=== PATIENT | male | born 1990 | race Caucasian/White ===

== ENCOUNTER 2019-06-06 02:45 | Inpatient (IN) | payer MEDICAID, OTHER ==
[~2019-06-06] VITALS: Ht 170.2 cm; Wt 63.6 kg
[2019-06-06] MEDS ORDERED: 0.9% SODIUM CHLORIDE 10 ML SYRINGE IVP PRN ×2 (03:30→10:15)
[2019-06-06] MEDS ORDERED: SODIUM CHLORIDE 0.9% 2,250 ML IV ONE (03:30)
[2019-06-06 03:43] LABS: GLUCOSE,POINT OF CARE 128 MG/DL (70-110)
[2019-06-06 04:08] LABS: INFLUENZA TYPE A NEGATIVE FOR TYPE A (NEGATIVE); INFLUENZA TYPE B NEGATIVE FOR TYPE B (NEGATIVE)
[2019-06-06 04:39] LABS: BASOPHILS % (AUTO) 0.2 % (0.0-2.0); EOSINOPHILS % (AUTO) 0.1 % (1.0-6.0); HEMATOCRIT 39.3 % (41-53); HEMOGLOBIN 14.2 g/dL (13.5-17.5); LYMPHOCYTES # (AUTO) 0.3 K/uL (1.0-4.8); LYMPHOCYTES % (AUTO) 2.6 % (22.0-44.0); MEAN CORPUSCULAR HEMOGLOBIN 35.6 pg (26.0-34.0); MEAN CORPUSCULAR HGB CONC 36.2 G/dL (31.0-37.0); MEAN CORPUSCULAR VOLUME 98 fL (80-100); MONOCYTES # (AUTO) 0.9 K/uL (0.1-1.0); MONOCYTES % (AUTO) 7.6 % (2.0-9.0); NEUTROPHILS # (AUTO) 10.7 K/uL (1.8-7.7); PLATELET COUNT (AUTO) 103 K/uL (150-450); RED CELL DISTRIBUTION WIDTH 12.7 % (11.5-14.5)
[2019-06-06 04:44] LABS: NEUTROPHILS % (AUTO) 89.5 % (40.0-70.0)
[2019-06-06] MEDS ORDERED: VANCOMYCIN HCL 1.5 GM in DEXTROSE 5%-WATER 250 ML IV ONE (04:45)
[2019-06-06 04:48] LABS: PROTHROMBIN TIME 10.2 SEC (9.4-11.6)
[2019-06-06 04:54] LABS: ALBUMIN 2.9 g/dL (3.4-5.0); BILIRUBIN,TOTAL 0.8 mg/dL (0.1-1.0); CALCIUM, TOTAL 8.7 mg/dL (8.8-10.5); CREATININE 1.54 mg/dL (0.60-1.30); TOTAL PROTEIN, SERUM 7.5 g/dL (6.4-8.2)
[2019-06-06 04:56] LABS: LACTIC ACID 1.5 mmol/L (0.4-2.0)
[2019-06-06 04:59] LABS: POTASSIUM 2.5 mmol/L (3.5-5.1)
[2019-06-06 05:01] LABS: FREE T4 (FREE THYROXINE) 0.82 ng/dL (0.76-1.46); THYROID STIMULATING HORMONE 1.51 uIU/mL (0.36-3.74)
[2019-06-06] MEDS: POTASSIUM CHL 10 MEQ/WATER 50 ML IV PRN ×4 (06:05→08:56)
[2019-06-06] MEDS ORDERED: SODIUM CHLORIDE 0.9% 250 ML IV ONE (06:45)
[2019-06-06 07:30] LABS: APPEARANCE,URINE CLOUDY (CLEAR); BILIRUBIN,URINE NEGATIVE (NEGATIVE); GLUCOSE, URINE (UA) NEGATIVE (NEGATIVE); KETONES,URINE 15 mg/dL (NEGATIVE); LEUKOCYTE ESTERASE ,URINE NEGATIVE (NEGATIVE); NITRATE,URINE NEGATIVE (NEGATIVE); OCCULT BLOOD,URINE LARGE (NEGATIVE); PH,URINE 5.5 (5.0-8.0); PROTEIN,URINE SEE CONFIRM (NEGATIVE); UROBILINOGEN,URINE 0.2 mg/dL (<=1.0)
[2019-06-06 07:36] LABS: AMPHET/METH SCREEN,URINE NEGATIVE (NEGATIVE); BARBITURATE SCREEN, URINE NEGATIVE (NEGATIVE); BENZODIAZEPINES SCREEN,URINE NEGATIVE (NEGATIVE); CANNABINOID SCREEN,URINE POSITIVE (NEGATIVE); COCAINE SCREEN,URINE NEGATIVE (NEGATIVE); METHADONE SCREEN, URINE NEGATIVE (NEGATIVE); OPIATE SCREEN,URINE NEGATIVE (NEGATIVE)
[2019-06-06 07:39] LABS: PHENCYCLIDINE SCREEN,URINE NEGATIVE (NEGATIVE)
[2019-06-06 07:45] LABS: SULFOSALICYLIC ACID,URINE 2+ (Negative)
[2019-06-06] MEDS ORDERED: ACETAMINOPHEN 500 MG TABLET PO ONE (07:45)
[2019-06-06 07:47] LABS: BACTERIA,URINE None Seen /HPF (None Seen); RBC,URINE 0-2 /HPF (0-2); SQUAMOUS EPITHELIAL CELL,UR Few /LPF (None Seen); WBC,URINE 0-2 /HPF (0-5)
[2019-06-06] MEDS: PIPERACILLIN/TAZO 3.375 GM/D5W 50 ML IV SCH ×3 (07:47→18:29)
[2019-06-06] MEDS: POTASSIUM CHLORIDE 20 MEQ ER TABLET PO PRN ×2 (10:01→15:02)
[2019-06-06] MEDS ORDERED: ONDANSETRON HCL 4 MG/2 ML VIAL IVP PRN (10:15)
[2019-06-06] MEDS ORDERED: POTASSIUM CHLORIDE 10% 40 MEQ/30 ML LIQUID UDCUP PO ONE ×3 (10:15→10:55)
[2019-06-06] MEDS ORDERED: OXYGEN THERAPY IH SCH (10:15)
[2019-06-06] MEDS ORDERED: ACETAMINOPHEN 325 MG TABLET PO PRN (10:15)
[2019-06-06] MEDS: ALBUTEROL SULFATE 2.5 MG/0.5 ML NEB SOLUTION NEB SCH ×4 (11:14→23:13)
[2019-06-06] MEDS: IPRATROPIUM BROMIDE 0.5 MG/2.5 ML NEB SOLUTION NEB SCH ×4 (11:14→23:13)
[2019-06-06] MEDS ORDERED: VANCOMYCIN HCL 1 GM/D5% WATER 200 ML IV SCH (19:00)
[2019-06-06] MEDS ORDERED: ALPRAZolam 0.25 MG TABLET PO ONE (20:15)
[2019-06-07] MEDS: PIPERACILLIN/TAZO 3.375 GM/D5W 50 ML IV SCH ×4 (00:27→21:46)
[2019-06-07] MEDS ORDERED: ACETAMINOPHEN 325 MG TABLET PO ONE (01:15)
[2019-06-07] MEDS ORDERED: HALOPERIDOL LACTATE 5 MG/ML VIAL IVP ONE (01:15)
[2019-06-07] MEDS ORDERED: SODIUM CHLORIDE 0.9% 1,000 ML IV ONE (01:15)
[2019-06-07] MEDS ORDERED: ACETAMINOPHEN 325 MG TABLET PO PRN (01:30)
[2019-06-07] MEDS ORDERED: ALBUTEROL SULFATE 2.5 MG/0.5 ML NEB SOLUTION NEB PRN (01:30)
[2019-06-07] MEDS ORDERED: BISACODYL 10 MG RECTAL RECTAL SUPPOSITORY PR PRN (01:30)
[2019-06-07] MEDS ORDERED: IPRATROPIUM BROMIDE 0.5 MG/2.5 ML NEB SOLUTION NEB PRN (01:30)
[2019-06-07] MEDS ORDERED: ONDANSETRON HCL 4 MG/2 ML VIAL IVP PRN (01:30)
[2019-06-07] MEDS ORDERED: MAGNESIUM HYDROXIDE SUSPENSION 30 ML UDCUP PO PRN (01:30)
[2019-06-07] MEDS ORDERED: ZOLPIDEM TARTRATE 5 MG TABLET PO PRN (01:30)
[2019-06-07] MEDS ORDERED: HYDROCODONE/ACETAMINOPHEN 5-325 MG TABLET PO PRN (01:30)
[2019-06-07 08:00] VITALS: BP 144/91
[2019-06-07] MEDS: SODIUM CHLORIDE 0.9% 1,000 ML IV SCH ×2 (08:22→16:10)
[2019-06-07 08:55] LABS: ANION GAP 12 mmol/L (8-16); CALCIUM, TOTAL 8.3 mg/dL (8.8-10.5); CARBON DIOXIDE 19 mmol/L (22-29); CHLORIDE 97 mmol/L (98-107); GLOMERULAR FILTR. RATE CALC > 60 mL/min (>60); GLUCOSE,RANDOM 98 mg/dL (70-110); POTASSIUM 3.7 mmol/L (3.5-5.1); SODIUM SERUM 128 mmol/L (136-145); UREA NITROGEN, BLOOD 12 mg/dL (7-18); VANCOMYCIN,RANDOM 5.7 mcg/mL (25.0-50.0)
[2019-06-07] MEDS: DOCUSATE SODIUM 100 MG CAPSULE PO SCH ×2 (09:00→20:41)
[2019-06-07] MEDS: ACETAMINOPHEN 650 MG/20.3 ML SOLUTION UDCUP PO PRN ×3 (09:36→21:46)
[2019-06-07 11:10] LABS: AMPHET/METH SCREEN,URINE NEGATIVE (NEGATIVE); BARBITURATE SCREEN, URINE NEGATIVE (NEGATIVE); BENZODIAZEPINES SCREEN,URINE NEGATIVE (NEGATIVE); CANNABINOID SCREEN,URINE POSITIVE (NEGATIVE); COCAINE SCREEN,URINE NEGATIVE (NEGATIVE); METHADONE SCREEN, URINE NEGATIVE (NEGATIVE); OPIATE SCREEN,URINE NEGATIVE (NEGATIVE)
[2019-06-07 11:11] LABS: PHENCYCLIDINE SCREEN,URINE NEGATIVE (NEGATIVE)
[2019-06-07] MEDS ORDERED: LORazepam 2 MG/ML VIAL IVP ONE (14:30)
[2019-06-07] MEDS: MORPHINE SULFATE 2 MG/ML SYRINGE IVP PRN (15:26)
[2019-06-07 16:00] VITALS: BP 156/52
[2019-06-07 20:00] VITALS: BP 136/107
[2019-06-07] MEDS: LORazepam 2 MG/ML VIAL IVP PRN (21:13)
[2019-06-08] VITALS: BP 112/75
[2019-06-08] MEDS ORDERED: ACETAMINOPHEN 650 MG/20.3 ML SOLUTION UDCUP ONE (02:17)
[2019-06-08] MEDS: LORazepam 2 MG/ML VIAL IVP PRN ×4 (02:18→21:00)
[2019-06-08] MEDS: ACETAMINOPHEN 650 MG/20.3 ML SOLUTION UDCUP PO PRN ×4 (02:27→21:00)
[2019-06-08] MEDS: PIPERACILLIN/TAZO 3.375 GM/D5W 50 ML IV SCH ×2 (03:21→09:09)
[2019-06-08 04:00] VITALS: BP 117/70
[2019-06-08 05:35] LABS: ANION GAP 10 mmol/L (8-16); CALCIUM, TOTAL 8.4 mg/dL (8.8-10.5); CARBON DIOXIDE 19 mmol/L (22-29); CHLORIDE 103 mmol/L (98-107); CREATININE 1.12 mg/dL (0.60-1.30); GLOMERULAR FILTR. RATE CALC > 60 mL/min (>60); GLUCOSE,RANDOM 116 mg/dL (70-110); SODIUM SERUM 132 mmol/L (136-145); UREA NITROGEN, BLOOD 14 mg/dL (7-18)
[2019-06-08 05:48] LABS: POTASSIUM 2.5 mmol/L (3.5-5.1)
[2019-06-08] MEDS: POTASSIUM CHL 10 MEQ/WATER 50 ML IV PRN ×7 (05:53→23:02)
[2019-06-08 08:00] VITALS: BP 133/87
[2019-06-08] MEDS: DOCUSATE SODIUM 100 MG CAPSULE PO SCH (08:56)
[2019-06-08] MEDS ORDERED: LORazepam 2 MG/ML VIAL IVP ONE (10:45)
[2019-06-08 12:00] VITALS: BP 127/58
[2019-06-08] MEDS: SODIUM CHLORIDE 0.9% 1,000 ML IV SCH (12:24)
[2019-06-08 13:45] LABS: BASOPHILS % (AUTO) 0.2 % (0.0-2.0); EOSINOPHILS % (AUTO) 0 % (1.0-6.0); HEMATOCRIT 37.3 % (41-53); HEMOGLOBIN 13.1 g/dL (13.5-17.5); LYMPHOCYTES # (AUTO) 0.8 K/uL (1.0-4.8); LYMPHOCYTES % (AUTO) 5.3 % (22.0-44.0); MEAN CORPUSCULAR HEMOGLOBIN 35.5 pg (26.0-34.0); MEAN CORPUSCULAR HGB CONC 35.2 G/dL (31.0-37.0); MEAN CORPUSCULAR VOLUME 101 fL (80-100); MONOCYTES # (AUTO) 0.6 K/uL (0.1-1.0); MONOCYTES % (AUTO) 3.7 % (2.0-9.0); NEUTROPHILS # (AUTO) 14.1 K/uL (1.8-7.7); NEUTROPHILS % (AUTO) 90.8 % (40.0-70.0); PLATELET COUNT (AUTO) 112 K/uL (150-450); RED CELL DISTRIBUTION WIDTH 13.3 % (11.5-14.5)
[2019-06-08 13:57] LABS: ANION GAP 9 mmol/L (8-16); CALCIUM, TOTAL 8.4 mg/dL (8.8-10.5); CARBON DIOXIDE 21 mmol/L (22-29); CHLORIDE 104 mmol/L (98-107); CREATININE 1.02 mg/dL (0.60-1.30); GLOMERULAR FILTR. RATE CALC > 60 mL/min (>60); GLUCOSE,RANDOM 99 mg/dL (70-110); POTASSIUM 3.3 mmol/L (3.5-5.1); SODIUM SERUM 134 mmol/L (136-145); UREA NITROGEN, BLOOD 15 mg/dL (7-18)
[2019-06-08 14:03] LABS: ALANINE AMINOTRANSFERASE 110 U/L (12-78); ALBUMIN 2.2 g/dL (3.4-5.0); ALKALINE PHOSPHATASE 58 U/L (46-116); ASPARTATE AMINOTRANSFERASE 425 U/L (15-37); BILIRUBIN,TOTAL 1.1 mg/dL (0.1-1.0); TOTAL PROTEIN, SERUM 6.4 g/dL (6.4-8.2)
[2019-06-08] MEDS: CefTRIAXone SODIUM 2 GM in DEXTROSE 5%-WATER 50 ML IV SCH (14:33)
[2019-06-08] MEDS: POTASSIUM CHL 10 MEQ/WATER 50 ML IV SCH ×4 (14:39→16:53)
[2019-06-08] MEDS ORDERED: OSELTAMIVIR PHOSPHATE 75 MG CAPSULE PO SCH (14:45)
[2019-06-08] MEDS ORDERED: VANCOMYCIN HCL 1 GM/D5% WATER 200 ML IV ONE (15:00)
[2019-06-08] MEDS ORDERED: SODIUM CHLORIDE 0.9% 250 ML IV ONE (15:01)
[2019-06-08] MEDS: MORPHINE SULFATE 2 MG/ML SYRINGE IVP PRN (15:06)
[2019-06-08] MEDS: MetroNIDAZOLE 500 MG/NACL 100 ML IV SCH ×2 (15:22→23:02)
[2019-06-08] MEDS: ACYCLOVIR 700 MG in DEXTROSE 5%-WATER 100 ML IV SCH ×2 (15:22→23:02)
[2019-06-08 16:00] VITALS: BP 123/88
[2019-06-08] MEDS: AZITHROMYCIN 500 MG/NS 250 ML IV SCH (16:55)
[2019-06-08 19:22] LABS: C.DIFF GDH ANTIGEN, Stool Negative (Negative); C.DIFF TOXINS A&B, Stool Negative (Negative)
[2019-06-08] MEDS: DOCUSATE SODIUM 100 MG/10 ML LIQUID UDCUP PO SCH (19:49)
[2019-06-08 20:00] VITALS: BP 142/94
[2019-06-08] MEDS: OSELTAMIVIR PHOSPHATE 6 MG/ML 5 ML SUSPENSION ORAL.SYG PO SCH (21:00)
[2019-06-08] MEDS: VANCOMYCIN HCL 1 GM/D5% WATER 200 ML IV SCH (21:01)
[2019-06-09] VITALS: BP 135/89
[2019-06-09] MEDS: CefTRIAXone SODIUM 2 GM in DEXTROSE 5%-WATER 50 ML IV SCH ×2 (02:18→15:42)
[2019-06-09] MEDS: ACETAMINOPHEN 650 MG/20.3 ML SOLUTION UDCUP PO PRN ×4 (02:32→21:16)
[2019-06-09 04:00] VITALS: BP 157/88
[2019-06-09] MEDS: VANCOMYCIN HCL 1 GM/D5% WATER 200 ML IV SCH ×3 (05:01→21:16)
[2019-06-09 05:08] LABS: BASOPHILS % (AUTO) 0.1 % (0.0-2.0); EOSINOPHILS % (AUTO) 0 % (1.0-6.0); HEMATOCRIT 34.1 % (41-53); HEMOGLOBIN 12.2 g/dL (13.5-17.5); LYMPHOCYTES # (AUTO) 0.6 K/uL (1.0-4.8); LYMPHOCYTES % (AUTO) 3.8 % (22.0-44.0); MEAN CORPUSCULAR HEMOGLOBIN 35.7 pg (26.0-34.0); MEAN CORPUSCULAR HGB CONC 35.8 G/dL (31.0-37.0); MEAN CORPUSCULAR VOLUME 100 fL (80-100); MONOCYTES # (AUTO) 0.7 K/uL (0.1-1.0); MONOCYTES % (AUTO) 4.5 % (2.0-9.0); NEUTROPHILS # (AUTO) 13.5 K/uL (1.8-7.7); PLATELET COUNT (AUTO) 130 K/uL (150-450); RED BLOOD CELL COUNT(AUTO) 3.42 MIL/uL (4.50-5.90); RED CELL DISTRIBUTION WIDTH 13.4 % (11.5-14.5)
[2019-06-09 05:09] LABS: NEUTROPHILS % (AUTO) 91.6 % (40.0-70.0)
[2019-06-09 05:40] LABS: ALANINE AMINOTRANSFERASE 100 U/L (12-78); ALBUMIN 2.1 g/dL (3.4-5.0); ALKALINE PHOSPHATASE 61 U/L (46-116); ANION GAP 11 mmol/L (8-16); ASPARTATE AMINOTRANSFERASE 371 U/L (15-37); CALCIUM, TOTAL 8.5 mg/dL (8.8-10.5); CARBON DIOXIDE 21 mmol/L (22-29); CHLORIDE 106 mmol/L (98-107); CREATININE 0.93 mg/dL (0.60-1.30); GLOMERULAR FILTR. RATE CALC > 60 mL/min (>60); GLUCOSE,RANDOM 135 mg/dL (70-110); POTASSIUM 3.4 mmol/L (3.5-5.1); SODIUM SERUM 138 mmol/L (136-145); TOTAL PROTEIN, SERUM 6.1 g/dL (6.4-8.2); UREA NITROGEN, BLOOD 12 mg/dL (7-18)
[2019-06-09] MEDS: ACYCLOVIR 700 MG in DEXTROSE 5%-WATER 100 ML IV SCH ×2 (06:21→15:45)
[2019-06-09] MEDS: SODIUM CHLORIDE 0.9% 1,000 ML IV SCH ×2 (06:21→15:42)
[2019-06-09] MEDS: MetroNIDAZOLE 500 MG/NACL 100 ML IV SCH ×2 (06:21→17:20)
[2019-06-09] MEDS: POTASSIUM CHL 10 MEQ/WATER 50 ML IV PRN ×2 (06:21→07:39)
[2019-06-09 08:00] VITALS: BP 135/86
[2019-06-09] MEDS: LORazepam 2 MG/ML VIAL IVP PRN (08:16)
[2019-06-09] MEDS: OSELTAMIVIR PHOSPHATE 6 MG/ML 5 ML SUSPENSION ORAL.SYG PO SCH ×2 (08:22→21:15)
[2019-06-09] MEDS: DOCUSATE SODIUM 100 MG/10 ML LIQUID UDCUP PO SCH ×2 (08:22→20:03)
[2019-06-09] MEDS ORDERED: LORazepam 2 MG/ML VIAL IVP PRN (09:15)
[2019-06-09 12:00] VITALS: BP 164/85
[2019-06-09 13:17] LABS: POTASSIUM 3.5 mmol/L (3.5-5.1)
[2019-06-09 16:00] VITALS: BP 157/86
[2019-06-09 16:00] LABS: GLUCOSE, CSF 60 mg/dL (50-80); TOTAL PROTEIN, CSF 23 mg/dL (15-45)
[2019-06-09 16:39] LABS: APPEARANCE,CSF CLEAR (CLEAR); COLOR,CSF COLORLESS (COLORLESS); CSF TOTAL VOLUME 7.8 mL; CSF TUBE NUMBER 1
[2019-06-09 16:40] LABS: LYMPHOCYTES1,CSF 0 %; MONOCYTES1,CSF 0 %; NEUTROPHILS1,CSF 0 %; OTHER CELLS,CSF 0
[2019-06-09 16:45] LABS: APPEARANCE2,CSF CLEAR (CLEAR); COLOR2,CSF COLORLESS (COLORLESS); CSF 2ND TUBE NUMBER 4; LYMPHOCYTES2,CSF 0 %; MONOCYTES2,CSF 0 %; NEUTROPHILS2,CSF 0 %; OTHER CELLS,CSF 2ND 0
[2019-06-09 17:04] LABS: MAGNESIUM 1.6 mg/dL (1.80-2.40)
[2019-06-09 17:10] LABS: PHOSPHORUS 1.3 mg/dL (2.5-4.9)
[2019-06-09] MEDS ORDERED: POTASSIUM PHOS,M-BASIC-D-BASIC 20 MMOL in DEXTROSE 5%-WATER 150 ML IV ONE (18:15)
[2019-06-09] MEDS: AZITHROMYCIN 500 MG/NS 250 ML IV SCH (18:21)
[2019-06-09 20:00] VITALS: BP 143/79
[2019-06-10] VITALS (7 sets, daily range): BP systolic 127–168; BP diastolic 60–106
[2019-06-10] MEDS: MetroNIDAZOLE 500 MG/NACL 100 ML IV SCH ×3 (00:33→18:10)
[2019-06-10] MEDS: SODIUM CHLORIDE 0.9% 1,000 ML IV SCH ×2 (00:33→18:10)
[2019-06-10] MEDS: CefTRIAXone SODIUM 2 GM in DEXTROSE 5%-WATER 50 ML IV SCH ×2 (01:20→13:12)
[2019-06-10] MEDS: ACETAMINOPHEN 650 MG/20.3 ML SOLUTION UDCUP PO PRN ×3 (02:11→18:48)
[2019-06-10] MEDS: VANCOMYCIN HCL 1 GM/D5% WATER 200 ML IV SCH (05:14)
[2019-06-10 06:39] LABS: BASOPHILS % (AUTO) 0.5 % (0.0-2.0); EOSINOPHILS % (AUTO) 0.1 % (1.0-6.0); HEMATOCRIT 31.6 % (41-53); HEMOGLOBIN 11.3 g/dL (13.5-17.5); LYMPHOCYTES # (AUTO) 0.7 K/uL (1.0-4.8); LYMPHOCYTES % (AUTO) 5.4 % (22.0-44.0); MEAN CORPUSCULAR HEMOGLOBIN 35.5 pg (26.0-34.0); MEAN CORPUSCULAR HGB CONC 35.7 G/dL (31.0-37.0); MEAN CORPUSCULAR VOLUME 99 fL (80-100); MONOCYTES # (AUTO) 0.8 K/uL (0.1-1.0); MONOCYTES % (AUTO) 6.5 % (2.0-9.0); NEUTROPHILS # (AUTO) 11.3 K/uL (1.8-7.7); PLATELET COUNT (AUTO) 186 K/uL (150-450); RED BLOOD CELL COUNT(AUTO) 3.18 MIL/uL (4.50-5.90)
[2019-06-10 06:44] LABS: NEUTROPHILS % (AUTO) 87.5 % (40.0-70.0)
[2019-06-10 07:09] LABS: ALANINE AMINOTRANSFERASE 80 U/L (12-78); ALKALINE PHOSPHATASE 69 U/L (46-116); ANION GAP 12 mmol/L (8-16); ASPARTATE AMINOTRANSFERASE 246 U/L (15-37); BILIRUBIN,TOTAL 1.1 mg/dL (0.1-1.0); CALCIUM, TOTAL 7.8 mg/dL (8.8-10.5); CARBON DIOXIDE 21 mmol/L (22-29); CHLORIDE 105 mmol/L (98-107); CREATININE 0.79 mg/dL (0.60-1.30); GLOMERULAR FILTR. RATE CALC > 60 mL/min (>60); GLUCOSE,RANDOM 106 mg/dL (70-110); PHOSPHORUS 2.2 mg/dL (2.5-4.9); SODIUM SERUM 138 mmol/L (136-145); TOTAL PROTEIN, SERUM 5.7 g/dL (6.4-8.2); UREA NITROGEN, BLOOD 9 mg/dL (7-18); VANCOMYCIN,RANDOM 11.3 mcg/mL (25.0-50.0)
[2019-06-10 07:22] LABS: POTASSIUM 2.6 mmol/L (3.5-5.1)
[2019-06-10] MEDS: POTASSIUM CHL 10 MEQ/WATER 50 ML IV PRN ×8 (07:57→22:21)
[2019-06-10] MEDS: DOCUSATE SODIUM 100 MG/10 ML LIQUID UDCUP PO SCH ×2 (09:00→21:00)
[2019-06-10 09:27] LABS: ORGANISM ID Not indicated.; S PNEUMO SOURCE Urine; STREP PNEUMONIAE AG URINE Negative (Negative); STREP.PNEUMO BODY FLUID CULT. Not indicated.
[2019-06-10] MEDS: OSELTAMIVIR PHOSPHATE 6 MG/ML 5 ML SUSPENSION ORAL.SYG PO SCH ×2 (10:11→21:49)
[2019-06-10 12:38] LABS: LEGIONELLA PNEUMO AG URINE Negative (Negative)
[2019-06-10 14:25] LABS: POTASSIUM 2.9 mmol/L (3.5-5.1)
[2019-06-10] MEDS: VANCOMYCIN HCL 1.5 GM in DEXTROSE 5%-WATER 250 ML IV SCH ×2 (15:24→21:23)
[2019-06-10] MEDS ORDERED: IOVERSOL 320 MG/ML 100 ML VIAL ONE (16:06)
[2019-06-10] MEDS ORDERED: SODIUM CHLORIDE 0.9% 100 ML ONE (16:06)
[2019-06-10] MEDS: AZITHROMYCIN 500 MG/NS 250 ML IV SCH (18:10)
[2019-06-10] MEDS: DOXYCYCLINE HYCLATE 100 MG CAPSULE PO SCH (21:22)
[2019-06-11] MEDS: POTASSIUM CHL 10 MEQ/WATER 50 ML IV PRN ×3 (00:14→03:21)
[2019-06-11] MEDS: MetroNIDAZOLE 500 MG/NACL 100 ML IV SCH ×2 (01:56→10:28)
[2019-06-11] MEDS ORDERED: SODIUM CHLORIDE 0.9% 250 ML IV ONE (02:11)
[2019-06-11 05:43] VITALS: BP 141/98
[2019-06-11 06:28] LABS: HIV 1-2 SCREEN 4TH GEN W/RFLX Non Reactive (Non Reactive)
[2019-06-11] MEDS: VANCOMYCIN HCL 1.5 GM in DEXTROSE 5%-WATER 250 ML IV SCH ×3 (06:29→22:52)
[2019-06-11] MEDS: SODIUM CHLORIDE 0.9% 1,000 ML IV SCH ×2 (06:29→21:28)
[2019-06-11 07:06] LABS: BASOPHILS % (AUTO) 0.4 % (0.0-2.0); EOSINOPHILS % (AUTO) 0.3 % (1.0-6.0); HEMOGLOBIN 10.3 g/dL (13.5-17.5); LYMPHOCYTES % (AUTO) 7.6 % (22.0-44.0); MEAN CORPUSCULAR HEMOGLOBIN 35.6 pg (26.0-34.0); MEAN CORPUSCULAR HGB CONC 35.4 G/dL (31.0-37.0); MEAN CORPUSCULAR VOLUME 101 fL (80-100); MONOCYTES % (AUTO) 7.6 % (2.0-9.0); NEUTROPHILS # (AUTO) 11.2 K/uL (1.8-7.7); NEUTROPHILS % (AUTO) 84.1 % (40.0-70.0); PLATELET COUNT (AUTO) 257 K/uL (150-450); RED BLOOD CELL COUNT(AUTO) 2.88 MIL/uL (4.50-5.90); RED CELL DISTRIBUTION WIDTH 13.7 % (11.5-14.5)
[2019-06-11 07:19] LABS: ALANINE AMINOTRANSFERASE 61 U/L (12-78); ALBUMIN 1.9 g/dL (3.4-5.0); ALKALINE PHOSPHATASE 91 U/L (46-116); ANION GAP 10 mmol/L (8-16); ASPARTATE AMINOTRANSFERASE 147 U/L (15-37); BILIRUBIN,TOTAL 1.2 mg/dL (0.1-1.0); CALCIUM, TOTAL 7.9 mg/dL (8.8-10.5); CARBON DIOXIDE 22 mmol/L (22-29); CHLORIDE 105 mmol/L (98-107); CREATININE 0.75 mg/dL (0.60-1.30); GLOMERULAR FILTR. RATE CALC > 60 mL/min (>60); GLUCOSE,RANDOM 110 mg/dL (70-110); POTASSIUM 3.1 mmol/L (3.5-5.1); SODIUM SERUM 137 mmol/L (136-145); TOTAL PROTEIN, SERUM 5.6 g/dL (6.4-8.2); UREA NITROGEN, BLOOD 8 mg/dL (7-18)
[2019-06-11] MEDS: DOCUSATE SODIUM 100 MG/10 ML LIQUID UDCUP PO SCH ×2 (09:00→21:00)
[2019-06-11 09:16] VITALS: BP 135/81
[2019-06-11] MEDS: DOXYCYCLINE HYCLATE 100 MG CAPSULE PO SCH ×2 (10:30→21:19)
[2019-06-11] MEDS: OSELTAMIVIR PHOSPHATE 6 MG/ML 5 ML SUSPENSION ORAL.SYG PO SCH ×2 (10:38→21:18)
[2019-06-11 12:04] VITALS: BP 151/86
[2019-06-11] MEDS: CefTRIAXone 1 GM/DEXTROSE 50 ML IV SCH (13:19)
[2019-06-11] MEDS: POTASSIUM CHLORIDE 20 MEQ ER TABLET PO PRN (15:02)
[2019-06-11 16:10] VITALS: BP 130/90
[2019-06-11] MEDS: AZITHROMYCIN 500 MG/NS 250 ML IV SCH (17:42)
[2019-06-11 20:52] VITALS: BP 135/92
[2019-06-12 00:20] VITALS: BP 135/54
[2019-06-12] MEDS: POTASSIUM CHLORIDE 20 MEQ ER TABLET PO PRN (01:06)
[2019-06-12 04:15] VITALS: BP 141/94
[2019-06-12] MEDS: VANCOMYCIN HCL 1.5 GM in DEXTROSE 5%-WATER 250 ML IV SCH (06:06)
[2019-06-12 06:28] LABS: BASOPHILS % (AUTO) 0.4 % (0.0-2.0); EOSINOPHILS % (AUTO) 0.8 % (1.0-6.0); HEMATOCRIT 29.1 % (41-53); HEMOGLOBIN 10.2 g/dL (13.5-17.5); LYMPHOCYTES # (AUTO) 1.2 K/uL (1.0-4.8); LYMPHOCYTES % (AUTO) 9.5 % (22.0-44.0); MEAN CORPUSCULAR HEMOGLOBIN 35.6 pg (26.0-34.0); MEAN CORPUSCULAR HGB CONC 35.2 G/dL (31.0-37.0); MEAN CORPUSCULAR VOLUME 101 fL (80-100); NEUTROPHILS % (AUTO) 81.3 % (40.0-70.0); PLATELET COUNT (AUTO) 301 K/uL (150-450); RED BLOOD CELL COUNT(AUTO) 2.88 MIL/uL (4.50-5.90); RED CELL DISTRIBUTION WIDTH 13.9 % (11.5-14.5)
[2019-06-12 06:42] LABS: ALANINE AMINOTRANSFERASE 49 U/L (12-78); ALBUMIN 1.9 g/dL (3.4-5.0); ALKALINE PHOSPHATASE 123 U/L (46-116); ANION GAP 8 mmol/L (8-16); ASPARTATE AMINOTRANSFERASE 95 U/L (15-37); BILIRUBIN,TOTAL 0.8 mg/dL (0.1-1.0); CARBON DIOXIDE 23 mmol/L (22-29); CHLORIDE 108 mmol/L (98-107); CREATININE 0.73 mg/dL (0.60-1.30); GLOMERULAR FILTR. RATE CALC > 60 mL/min (>60); GLUCOSE,RANDOM 115 mg/dL (70-110); POTASSIUM 3.6 mmol/L (3.5-5.1); SODIUM SERUM 139 mmol/L (136-145); TOTAL PROTEIN, SERUM 5.6 g/dL (6.4-8.2); UREA NITROGEN, BLOOD 7 mg/dL (7-18)
[2019-06-12 07:58] LABS: VANCOMYCIN,RANDOM 18.8 mcg/mL (25.0-50.0)
[2019-06-12 08:57] VITALS: BP 136/89
[2019-06-12] MEDS: DOCUSATE SODIUM 100 MG/10 ML LIQUID UDCUP PO SCH ×2 (09:00→20:51)
[2019-06-12] MEDS: DOXYCYCLINE HYCLATE 100 MG CAPSULE PO SCH ×2 (09:11→20:51)
[2019-06-12] MEDS: OSELTAMIVIR PHOSPHATE 6 MG/ML 5 ML SUSPENSION ORAL.SYG PO SCH ×2 (09:11→20:52)
[2019-06-12] MEDS: POTASSIUM CHL 10 MEQ/WATER 50 ML IV PRN ×3 (09:16→21:18)
[2019-06-12 12:07] VITALS: BP 149/93
[2019-06-12] MEDS: CefTRIAXone 1 GM/DEXTROSE 50 ML IV SCH (12:13)
[2019-06-12] MEDS: VANCOMYCIN HCL 1.25 GM in DEXTROSE 5%-WATER 250 ML IV SCH ×2 (13:06→18:31)
[2019-06-12 16:06] VITALS: BP 130/70
[2019-06-12] MEDS: AZITHROMYCIN 500 MG/NS 250 ML IV SCH (17:17)
[2019-06-12] MEDS: SODIUM CHLORIDE 0.9% 1,000 ML IV SCH (17:17)
[2019-06-12 19:23] LABS: QUANTIFERON+, Nil Value 0.06 IU/mL; QUANTIFERON+,TB1 Antigen Value 0.07 IU/mL; QUANTIFERON, TB GOLD PLUS Indeterminate (Negative)
[2019-06-12 20:08] VITALS: BP 152/89
[2019-06-12 23:48] LABS: MUMPS VIRUS IGM ANTIBODY CSF 0.06 IV (<=0.79); RUBEOLA (MEASLES) IGG CSF <5.0 AU/mL (<=16.4); WEST NILE VIRUS IGG CSF 0.04 IV (<=1.29)
[2019-06-13 00:08] VITALS: BP 131/89
[2019-06-13 04:23] VITALS: BP 155/93
[2019-06-13 07:13] LABS: BASOPHILS % (AUTO) 0.7 % (0.0-2.0); EOSINOPHILS % (AUTO) 0.7 % (1.0-6.0); HEMATOCRIT 29.3 % (41-53); HEMOGLOBIN 10.4 g/dL (13.5-17.5); LYMPHOCYTES # (AUTO) 1.9 K/uL (1.0-4.8); MEAN CORPUSCULAR HEMOGLOBIN 35.9 pg (26.0-34.0); MEAN CORPUSCULAR HGB CONC 35.3 G/dL (31.0-37.0); MEAN CORPUSCULAR VOLUME 102 fL (80-100); MONOCYTES # (AUTO) 1.1 K/uL (0.1-1.0); MONOCYTES % (AUTO) 7.8 % (2.0-9.0); NEUTROPHILS # (AUTO) 11.3 K/uL (1.8-7.7); NEUTROPHILS % (AUTO) 77.8 % (40.0-70.0); PLATELET COUNT (AUTO) 362 K/uL (150-450); RED BLOOD CELL COUNT(AUTO) 2.89 MIL/uL (4.50-5.90); RED CELL DISTRIBUTION WIDTH 13.3 % (11.5-14.5)
[2019-06-13 07:19] LABS: ALANINE AMINOTRANSFERASE 51 U/L (12-78); ALBUMIN 2.2 g/dL (3.4-5.0); ALKALINE PHOSPHATASE 137 U/L (46-116); ANION GAP 7 mmol/L (8-16); ASPARTATE AMINOTRANSFERASE 70 U/L (15-37); BILIRUBIN,TOTAL 0.7 mg/dL (0.1-1.0); CALCIUM, TOTAL 8.3 mg/dL (8.8-10.5); CARBON DIOXIDE 22 mmol/L (22-29); CHLORIDE 106 mmol/L (98-107); CREATININE 0.73 mg/dL (0.60-1.30); GLOMERULAR FILTR. RATE CALC > 60 mL/min (>60); GLUCOSE,RANDOM 115 mg/dL (70-110); POTASSIUM 3.8 mmol/L (3.5-5.1); SODIUM SERUM 135 mmol/L (136-145); TOTAL PROTEIN, SERUM 6.3 g/dL (6.4-8.2); UREA NITROGEN, BLOOD 7 mg/dL (7-18)
[2019-06-13 07:36] VITALS: BP 133/91
[2019-06-13] MEDS: DOXYCYCLINE HYCLATE 100 MG CAPSULE PO SCH ×2 (08:51→21:29)
[2019-06-13] MEDS: AMOX TR/POT CLAV 875 MG/125 MG TABLET PO SCH ×2 (08:51→21:28)
[2019-06-13] MEDS: OSELTAMIVIR PHOSPHATE 6 MG/ML 5 ML SUSPENSION ORAL.SYG PO SCH (08:51)
[2019-06-13] MEDS: DOCUSATE SODIUM 100 MG/10 ML LIQUID UDCUP PO SCH ×3 (08:53→21:29)
[2019-06-13] MEDS: SODIUM CHLORIDE 0.9% 1,000 ML IV SCH (08:54)
[2019-06-13 11:54] VITALS: BP 139/88
[2019-06-13 17:24] VITALS: BP 144/95
[2019-06-13 20:13] VITALS: BP 137/83
[2019-06-14] VITALS: BP 135/88
[2019-06-14 04:01] VITALS: BP 134/81
[2019-06-14 07:27] LABS: BASOPHILS % (AUTO) 0.7 % (0.0-2.0); EOSINOPHILS % (AUTO) 0.5 % (1.0-6.0); HEMATOCRIT 29.3 % (41-53); HEMOGLOBIN 10.2 g/dL (13.5-17.5); LYMPHOCYTES # (AUTO) 2.1 K/uL (1.0-4.8); LYMPHOCYTES % (AUTO) 14.8 % (22.0-44.0); MEAN CORPUSCULAR HEMOGLOBIN 35.8 pg (26.0-34.0); MEAN CORPUSCULAR HGB CONC 34.9 G/dL (31.0-37.0); MEAN CORPUSCULAR VOLUME 103 fL (80-100); MONOCYTES # (AUTO) 1.1 K/uL (0.1-1.0); MONOCYTES % (AUTO) 7.6 % (2.0-9.0); NEUTROPHILS # (AUTO) 10.7 K/uL (1.8-7.7); NEUTROPHILS % (AUTO) 76.4 % (40.0-70.0); PLATELET COUNT (AUTO) 419 K/uL (150-450); RED BLOOD CELL COUNT(AUTO) 2.86 MIL/uL (4.50-5.90); RED CELL DISTRIBUTION WIDTH 13.6 % (11.5-14.5)
[2019-06-14 07:31] VITALS: BP 135/88
[2019-06-14 08:19] LABS: ALANINE AMINOTRANSFERASE 48 U/L (12-78); ALBUMIN 2.4 g/dL (3.4-5.0); ALKALINE PHOSPHATASE 133 U/L (46-116); ANION GAP 11 mmol/L (8-16); ASPARTATE AMINOTRANSFERASE 55 U/L (15-37); BILIRUBIN,TOTAL 0.7 mg/dL (0.1-1.0); CALCIUM, TOTAL 8.5 mg/dL (8.8-10.5); CARBON DIOXIDE 22 mmol/L (22-29); CHLORIDE 105 mmol/L (98-107); CREATININE 0.84 mg/dL (0.60-1.30); GLOMERULAR FILTR. RATE CALC > 60 mL/min (>60); GLUCOSE,RANDOM 121 mg/dL (70-110); POTASSIUM 3.8 mmol/L (3.5-5.1); SODIUM SERUM 138 mmol/L (136-145); TOTAL PROTEIN, SERUM 6.7 g/dL (6.4-8.2); UREA NITROGEN, BLOOD 8 mg/dL (7-18)
[2019-06-14] MEDS: DOXYCYCLINE HYCLATE 100 MG CAPSULE PO SCH (08:21)
[2019-06-14] MEDS: DOCUSATE SODIUM 100 MG/10 ML LIQUID UDCUP PO SCH (08:21)
[2019-06-14] MEDS: AMOX TR/POT CLAV 875 MG/125 MG TABLET PO SCH (08:21)
[2019-06-14 11:45] VITALS: BP 115/72
[2019-06-14] MEDS ORDERED: DOXY100C2 PO (15:00)
[2019-06-14] MEDS ORDERED: AMOX1TAB16 PO (15:00)
[2019-06-15 21:22] LABS: ROCKY MT SPOTTED FEVER IGG Negative (Negative)
== END 2019-06-14 15:30 | disposition home or self-care (01) | DRG 720 ==
LOC: EMS 02:48 → ICU 06-07 05:42 → 5S 06-10 22:38
PROVIDERS: ADMIT Hospitalist; ATTEND Hospitalist
DX: A41.9 Sepsis, unspecified organism (principal); I61.1 Nontraumatic intracerebral hemorrhage in hemisphere, cortical; G93.40 Encephalopathy, unspecified; N17.9 Acute kidney failure, unspecified; J18.9 Pneumonia, unspecified organism; D69.6 Thrombocytopenia, unspecified; J98.2 Interstitial emphysema; E87.1 Hypo-osmolality and hyponatremia; E86.9 Volume depletion, unspecified; F12.10 Cannabis abuse, uncomplicated; G93.0 Cerebral cysts; W10.9XXA Fall (on) (from) unspecified stairs and steps, initial encounter; F15.10 Other stimulant abuse, uncomplicated; E87.6 Hypokalemia; R74.8 Abnormal levels of other serum enzymes; Y93.01 Activity, walking, marching and hiking; Y92.009 Unspecified place in unspecified non-institutional (private) residence as the place of occurrence of the external cause; Z87.891 Personal history of nicotine dependence; Q04.8 Other specified congenital malformations of brain
CPT/HCPCS: 70450; 70544; 70551; 71250; 72125; 74177; 76700; 80074; 80307; 82248; 82270; 82271; 82945; 83605; 83735; 84100; 84132; 84145; 84157; 84439; 84443; 86000; 86038; 86171; 86308; 86480; 86592; 86631; 86632; 86635; 86644; 86645; 86694; 86735; 86765; 86787; 86788; 86789; 87040; 87045; 87070; 87081; 87205; 87324; 87389; 87449; 87529; 87556; 87804; 87899; 89051; 89055; 93005; 93306; 94640; 95816; 96365; 97116; 97161; 99291; G0378; J0133; J0456; J0696; J1630; J2060; J2270; J2543; J3370; J3480; J3490; J7030; J7050; J7060